=== PATIENT | female | born 1995 | race Asian ===

== ENCOUNTER 2017-12-01 10:57 | Observation (INO) | payer MEDICAID ==
[~2017-12-01] VITALS: Ht 162.6 cm; Wt 76.2 kg
[2017-12-01 11:48] LABS: Basophils # (auto) 0 uL; Basophils % (auto) 0.5 % (0.0-2.0); Eosinophils # (auto) 0.1 uL; Eosinophils % (auto) 2.8 % (0.0-7.0); Hematocrit 41.1 % (36.0-46.0); Hemoglobin 13.9 g/dL (12.2-16.2); Lymphocytes # (auto) 1.3 uL; Lymphocytes % (auto) 29.9 % (10.0-50.0); Mean Corpuscular Hemoglobin 29.4 pg (28.0-32.0); Mean Corpuscular Hgb Conc. 33.8 g/dL (32.0-36.0); Mean Corpuscular Volume 86.9 fL (80.0-100.0); Monocytes # (auto) 0.3 uL; Monocytes % (auto) 7.5 % (0.0-12.0); Neutrophils # (auto) 2.5 uL; Neutrophils % (auto) 59.3 % (37.0-80.0); Platelet Count (auto) 268 10^3/uL (140-450); Red Blood Cells 4.72 10^6/uL (4.0-5.20); Red Cell Distribution Width 13.7 % (11.8-14.3); White Blood Cell 4.3 10^3/uL (4.4-10.8)
[2017-12-01 12:07] LABS: Albumin 4.2 g/dL (3.4-5.0); Bilirubin, Total 0.7 mg/dL (0.2-1.0); Calcium 8.8 mg/dL (8.5-10.1); Potassium 4.1 mmol/L (3.5-5.1); Total Protein 7.5 g/dL (6.4-8.2)
[2017-12-01 13:54] LABS: Urine Bacteria FEW /hpf (None Seen); Urine Blood Negative /uL (Negative); Urine Mucus FEW (None Seen); Urine Specific Gravity 1.038 (1.001-1.035); Urine WBC 11 /hpf (0 - 5)
[2017-12-01 15:48] VITALS: BP 109/68
== END 2017-12-01 15:47 | disposition home or self-care (01) | DRG 254 ==
LOC: ER 10:57 → OVERFLOW 13:43 → ER 15:47
PROVIDERS: ADMIT Family Medicine; ATTEND Family Medicine
DX: I88.0 Nonspecific mesenteric lymphadenitis (principal); F31.9 Bipolar disorder, unspecified; N39.0 Urinary tract infection, site not specified; Z82.49 Family history of ischemic heart disease and other diseases of the circulatory system
CPT/HCPCS: 36415; 71045; 74176; 80053; 81001; 81025; 82150; 83690; 83735; 84702; 85025; 99285; G0378

== ENCOUNTER 2024-09-13 16:00 | Emergency (ER) | payer MEDICAID ==
[~2024-09-13] VITALS: Ht 170.2 cm; Wt 63.0 kg
--- NOTE | 2024-09-13 16:07 | ED.PDOC ---
History of Present Illness HPI Comments 29-year-old female who comes in with chief complaint of suicidal ideation. The patient states that she was having an argument with her significant other and it escalated to the point where she stated that she wanted to hurt herself. The patient states that she has has a history of suicidal ideation and attempt in the past. She also states that she is supposed to be on medications for mood stabilizers but has not taken any for approximately 1-1/2 months. Upon arrival, the patient's vital signs have been stable. She is answering questions appropr iately but states that she is still somewhat suicidal Time Seen by MD: 16:01 Primary Care Provider: ANA Reviewed Notes: Nurses Notes, Parts Room Clerk Notes, Medications, Allergies (Allergies listed above) Allergies: Coded Allergies: Cefprozil (Verified Allergy, Severe, 12/01/17) Codeine (Verified Allergy, Severe, 12/01/17) Sulfa Antibiotics (Verified Allergy, Severe, 12/01/17) Sulfamethoxazole w/Trimethoprim (Verified Allergy, Severe, 12/01/17) Information Source: Patient, Emergency Med Personnel Mode of Arrival: EMS Severity: Moderate Timing: Hours Duration: Since onset Prehospital treatment: None Associated signs and symptoms Suicidal ideation and some anxiety Past Medical History PAST MEDICAL HISTORY: Denies Surgical History: Denies all surgeries [employer]OR History: No Pertinent NOXI[employer] INS[employer]OR History Family History Family History: Family hx of DM, Family hx of Cancer, Family hx of HTN Social History Smoker: Non-Smoker Alcohol: Denies ETOH Use Drugs: Denies Drug Use Lives In: Home Constitutional: denies: chills, diaphoresis, fatigue, fever, malaise, sweats, weakness, others EENTM: denies: blurred vision, double vision, ear bleeding, ear discharge, ear drainage, ear pain, ear ringing, eye pain, eye redness, hearing loss, mouth pain, mouth swelling, nasal discharge, nose bleeding, nose congestion, nose pain, photophobia, tearing, throat pain, throat swelling, voice changes, others Respiratory: denies: cough, hemoptysis, orthopnea, SOB at rest, shortness of breath, SOB with excertion, stridor, wheezing, others Cardiovascular: denies: chest pain, dizzy spells, diaphoresis, Dyspnea on exertion, edema, irregular heart beat, left arm pain, lightheadedness, palpitations, PND, syncope, others Gastrointestinal: denies: abdomen distended, abdominal pain, blood streaked bowels, constipated, diarrhea, dysphagia, difficulty swallowing, hematemesis, melena, nausea, poor appetite, poor fluid intake, rectal bleeding, rectal pain, vomiting, others Genitourinary: denies: abnormal vagina bleeding, burning, dyspareunia, dysuria, flank pain, frequency, hematuria, incontinence, pain, , vagina discharge, urgency, others Neurological: denies: dizziness, fainting, headache, left sided numbness, left sided weakness, numbness, paresthesia, pre-existing deficit, right sided numbness, right sided weakness, seizure, speech problems, tingling, tremors, weakness, others Musculoskeletal: denies: back pain, gout, joint pain, joint swelling, muscle pain, muscle stiffness, neck pain, others Integumetry: denies: bruises, change in color, change in hair/nails, dryness, laceration, lesions, lumps, rash, wounds, others Allergic/Immunocompromised: denies: Difficulty Healing, Frequent Infections, Hives, Itching, others Endocrine: denies: excessive hunger, excessive sweating, excessive thirst, excessive urination, flushing, intolerance to cold, intolerance to heat, unexp lained weight gain, unexplained weight loss, others Psychiatric: reports: anxiety, suicidal; denies: bipolar disorder, depression, hopeless, panic disorder, schizophrenia, sleepless, others Physical Exam General Appearance: Mild Distress HEENT: Normal ENT Inspection, Pharynx Normal, TMs Normal Neck: Full Range of Motion, Non-Tender, Normal, Normal Inspection Respiratory: Chest Non-Tender, Lungs Clear, No Accessory Muscle Use, No Respiratory Distress, Normal Breath Sounds Cardiovascular: No Edema, No JVD, No Murmur, No Gallop, Normal Peripheral Pulses, Regular Rate/Rhythm Breast Exam: Deferred Gastrointestinal: No Organomegaly, Non Tender, No Pulsatile Mass, Normal Bowel Sounds, Soft Genitalia: Deferred Pelvic: Deferred Rectal: Deferred Extremities: No calf tenderness, Normal capillary refill, Normal inspection, Normal range of motion, Non-tender, No pedal edema Musculoskeletal : Apperance: Normal Neurologic: Alert, chiropractor assistant II-XII nml as Tested, No Motor Deficits, No Sensory Deficits, Other (Suicidal ideation) Cerebellar Function: Normal Reflexes: Normal Skin: Dry, Normal Color, Warm Lymphatic: No Adenopathy Was a procedure done? Was a procedure done?: No Differential Dx Considerations may include: Suicidal ideation, anxiety, generalized weakness X-Ray, Labs, Meds, VS Vital Signs Date Time Temp Pulse Resp B/P (MAP) Pulse Ox O2 Delivery O2 Flow Rate FiO2 09/13/24 16:24 98.7 78 20 122/87 (99) 98 98.7 Lab Test 09/13/24 16:58 09/13/24 16:33 Range/Units Urine Test Negative Negative Urine Opiates Screen Neg NEGATIVE Urine Fentanyl Screen Neg NEGATIVE Urine Barbiturates Screen Neg NEGATIVE Urine Phencyclidine Screen Neg NEGATIVE Urine Amphetamines Screen Neg NEGATIVE Urine Benzodiazepines Screen Neg NEGATIVE Urine Cocaine Screen Neg NEGATIVE Urine Cannabinoids Screen Neg NEGATIVE Salicylates Level < 3.0 -30 mg/dL Acetaminophen Level 10.0 10.0-20.0 UG/ML Plasma/Serum Blood Alcohol < 3.0 <10 mg/dL The patient's urine tox is negative The alcohol is negative The acetaminophen and salicylate level are negative The patient is now considered to be medically cleared for a psychiatric consult We did order a telemedicine psychiatric consult The patient will be signed out to Time of 1ST Reevaluation: 17:24 Reevaluation 1ST: Unchanged Patient Education/Counseling: Diagnosis, Treatment, Prognosis Family Education/Counseling: No Family Present Departure 1 Departure Time of Disposition: 17:24 Impression: Primary Impression: Suicidal ideation Additional Impression: Acute anxiety Disposition: 30 STILL A PATIENT Condition: Fair Critical Care Note Critical Care Time?: No Stability Stability form required: No Heart Score Heart Score: Heart Score Response (Comments) Value History N/A 0 EKG N/A 0 Age N/A 0 Risk Factors N/A 0 Troponin N/A 0 Total 0 LESLEY GARCIA MD Sep 13, 2024 16:07
[2024-09-13 16:24] VITALS: BP 122/87; PULSE 78; RESP 20; TEMP 98.7; O2SAT 98
[2024-09-13 16:59] LABS: Salicylate < 3.0 mg/dL (-30)
[2024-09-13 17:20] LABS: Amphetamine Screen, Urine Neg (NEGATIVE); Barbiturate Scree,Urine Neg (NEGATIVE); Benzodiazephine Screen, Urine Neg (NEGATIVE); Cocaine Screen, Urine Neg (NEGATIVE); Opiate Scree,Urine Neg (NEGATIVE); Phencyclidine Screen, Urine Neg (NEGATIVE)
[2024-09-13 17:21] LABS: Cannabinoid Screen, Urine Neg (NEGATIVE)
== END 2024-09-14 11:57 | disposition left against medical advice (07) ==
LOC: EDBD 16:00 → ER 16:00 → EDUNIT# 16:00 → ER 09-14 11:57
DX: R45.851 Suicidal ideations (principal); F41.9 Anxiety disorder, unspecified; Z79.899 Other long term (current) drug therapy; Z88.5 Allergy status to narcotic agent; Z88.2 Allergy status to sulfonamides; Z88.1 Allergy status to other antibiotic agents
CPT/HCPCS: 36415; 80307; 80320; 80329; 81025